=== PATIENT | male | born 1980 | race Caucasian/White ===

== ENCOUNTER → 2016-06-09 | Outpatient (CLI) | payer BC ==
[~2016-06-09] MED LIST: IOHEXOL 240 MG/ML 50ML VIAL. ONE; IOHEXOL 240 MG/ML 50ML VIAL. PO ONE
--- NOTE | 2016-06-09 11:25 | RAD ---
Indication left upper quadrant pain. Axial images through the abdomen were obtained. The pelvis was not studied. A limited amount of gastrointestinal contrast was administered. No prior imaging of the abdomen is available. The lung bases are clear. The liver appears unremarkable and the gallbladder appears grossly normal. No splenic pathology is seen. There is no pancreatic abnormality. There is slight stranding involving the mesentery in the midline in the upper abdomen. This is a nonspecific finding. There are occasional small retroperitoneal and mesenteric lymph nodes. This is probably incidental. No adrenal or renal pathology is seen. IMPRESSION: No acute or definite significant finding in the abdomen. Mild mesenteric stranding is noted which is nonspecific. Occasional small retroperitoneal lymph nodes are additionally noted which too is nonspecific PQRS Compliance Statement: One or more of the following individualized dose reduction techniques were utilized for this examination: 1. Automated exposure control 2. Adjustment of the mA and/or kV according to patient size 3. Use of iterative reconstruction technique
== END | disposition home or self-care (01) ==
LOC: CT 10:03
PROVIDERS: ATTEND Family Medicine
DX: R10.12 Left upper quadrant pain (principal); J45.909 Unspecified asthma, uncomplicated; R14.0 Abdominal distension (gaseous)
CPT/HCPCS: 74150; Q9966

== ENCOUNTER → 2016-12-31 | Outpatient (CLI) | payer BC ==
--- NOTE | 2017-01-04 09:51 | RAD ---
APPROVED REPORT Patient Location : OUT-PATIENT Indications Lower Extremity Edema : Color Doppler and spectral imaging at the level of the proximal right great saphenous vein reveals re flux of approximately 3.6 seconds. On baez scale images the right great saphenous vein splits at the level of the mid thigh and is not well visualized. At the level of the distal thigh there are multipl e varicose veins noted near the skin. The right lesser saphenous vein was not imaged. The left great saphenous vein is not well visualized distally and does not show any evidence of flow. The left lesser saphenous vein has a reflux time of 3.7 seconds and measures approximately 6 mm. Multiple perforators are noted on the right side at approximately 8 cm up, 9 cm back, 12 cm up and 9 cm back, 27 cm up and 11 cm back, 35 cm up and 19 cm back. 2 perforators are noted on the left side at approximately 23 cm up, 8 cm back and 26 cm up and 7 cm b ack. [employer] diameters are variable from 2.8 mm to 3.6 mm. Critical Notification Critical Value: No <Conclusion> 1. Suspected bilateral great saphenous vein ablation. There is reflux noted in a short segment of the right great saphenous vein at the level of the upper thigh. Below this level of the great saphenous vein on the right side is not visualized. 2. Previous left great saphenous vein ablation. 3. Positive for reflux in the left lesser saphenous vein. The right lesser saphenous vein is not visu alized. 4. Multiple bilateral calf perforators as noted above. Multiple superficial venous varicosities noted on baez scale images.
== END | disposition home or self-care (01) ==
LOC: US 09:37
PROVIDERS: ATTEND Internal Medicine Cardiovascular Disease
DX: I87.2 Venous insufficiency (chronic) (peripheral) (principal); I82.890 Acute embolism and thrombosis of other specified veins; I86.8 Varicose veins of other specified sites
CPT/HCPCS: 93970

== ENCOUNTER → 2021-07-22 | Outpatient (CLI) | payer OTHER ==
--- NOTE | 2021-07-22 09:06 | RAD ---
Left lower extremity venous duplex study Clinical History: left Lower extremity pain and edema Technique: Using a combination of real time ultrasound imaging and color-flow and pulse Doppler imagi ng techniques, including spectral analysis, graded compression and augmentation, duplex evaluation of the deep venous system of the left lower extremity was performed. Multiple images were obtained. Findings: There is no sonographic evidence of deep venous thrombosis involving the visualized deep ve nous structures of the left lower extremity Impression: No evidence of deep venous thrombosis involving the left lower extremity Electronically signed by: Jonathon Batista MD (07/22/2021 9:04 AM) [id number]
--- NOTE | 2021-07-22 10:19 | RAD ---
Study: XR CHEST 2V Indication: Difficulty breathing. History of asthma. Comparison: None recently. Findings: The cardiomediastinal silhouette and krystal are within normal limits. No localized airspace opacity, pl eural effusion or pneumothorax.. Incomplete inspiration with mild bronchovascular crowding. Impression: No acute radiographic abnormality of the chest. Electronically signed by: ROBERT HAILE MD (07/22/2021 10:17 AM) [id number]
== END ==
LOC: US 08:30
PROVIDERS: ATTEND Physician Assistant Medical
DX: R06.02 Shortness of breath (principal); M79.605 Pain in left leg
CPT/HCPCS: 71046; 93971